=== PATIENT | male | born 1995 | race Caucasian/White ===

== ENCOUNTER 2018-12-26 20:35 | Emergency (ER) | payer MEDICAID, OTHER ==
[~2018-12-26] VITALS: Ht 180.3 cm; Wt 99.8 kg
[~2018-12-26 20:35] MED LIST: CODACE30 PO; HYDACE5 PO; RXCODACET PO; RXHYDACE PO
[2018-12-27] MEDS ORDERED: IBUP600 PO (00:27)
== END 2018-12-27 00:43 | disposition home or self-care (01) ==
LOC: ER 20:35
DX: S86.912A Strain of unspecified muscle(s) and tendon(s) at lower leg level, left leg, initial encounter (principal); S40.011A Contusion of right shoulder, initial encounter; W18.30XA Fall on same level, unspecified, initial encounter
CPT/HCPCS: 73030; 73562-LT; 99283-25

== ENCOUNTER 2021-06-14 12:38 | Emergency (ER) | payer OTHER ==
[~2021-06-14] VITALS: Ht 180.3 cm; Wt 95.2 kg
[~2021-06-14 12:38] MED LIST changes: +IBUP600 PO
[2021-06-14] MEDS ORDERED: ADULT GLYCERIN1 EACH PR (14:17)
[2021-06-14] MEDS ORDERED: MAGCIT300 PO (14:17)
[2021-06-14] MEDS ORDERED: BISA5EC PO (14:17)
[2021-12-26] MEDS ORDERED: Cleocin HCl300 MG PO (03:52)
== END 2021-06-14 14:26 | disposition home or self-care (01) ==
LOC: ER 12:38
DX: K59.00 Constipation, unspecified (principal); F11.10 Opioid abuse, uncomplicated
CPT/HCPCS: 74019; 99283-25

== ENCOUNTER 2022-01-04 23:26 | Inpatient (IN) | payer OTHER ==
[~2022-01-04] VITALS: Ht 180.3 cm; Wt 98.7 kg
[~2022-01-04 23:26] MED LIST changes: +ADULT GLYCERIN1 EACH PR; +BISA5EC PO; +Cleocin HCl300 MG PO; +MAGCIT300 PO
[2022-01-05 00:38] LABS: BASOPHILS ABSOLUTE AUTO 0.04 K/mm3 (0.00-0.23); BASOPHILS PERCENT AUTO 0 % (0-2); EOSINOPHILS ABSOLUTE AUTO 0.08 K/mm3 (0.00-0.68); EOSINOPHILS PERCENT AUTO 1 % (0-6); Hematocrit 43.7 % (37.0-53.0); Hemoglobin 15.3 g/dL (13.5-17.5); IMMATURE GRAN ABSOLUTE AUTO 0.05 K/mm3 (0.00-0.10); IMMATURE GRAN PERCENT AUTO 0 % (0-1); LYMPHOCYTES ABSOLUTE AUTO 2.77 K/mm3 (0.84-5.20); LYMPHOCYTES PERCENT AUTO 20 % (21-46); MONOCYTES ABSOLUTE AUTO 1.36 K/mm3 (0.16-1.47); MONOCYTES PERCENT AUTO 10 % (4-13); Mean Corpuscular HGB 30.4 pg (26.0-34.0); Mean Corpuscular Volume 87 fL (80-100); Mean Platelet Volume 9.8 fL (9.1-12.4); NEUTROPHILS ABSOLUTE AUTO 9.63 K/mm3 (1.96-9.15); NEUTROPHILS PERCENT AUTO 69 % (41-73); Platelet Count 272 K/mm3 (150-400); RDW Coefficient Variation 13.4 % (11.7-14.2); RDW Standard Deviation 42.3 fL (35.1-46.3); Red Blood Cell Count 5.04 M/mm3 (4.30-5.90); White Blood Cell Count 13.93 K/mm3 (4.00-11.30)
[2022-01-05 00:51] LABS: Albumin, Blood 4.1 g/dL (3.4-5.0); Albumin/Globulin Ratio 1.2 (0.8-1.8); Bilirubin, Total 1.2 mg/dL (0.1-1.0); Bun/Creatinine Ratio 16.7 (12.0-20.0); Calcium, Blood 9.1 mg/dL (8.5-10.1); Creatinine, Blood 0.96 mg/dL (0.60-1.20); Globulin, Blood 3.3 g/dL (2.2-4.0); Potassium, Blood 3.6 mmol/L (3.5-5.5); Total Protein, Blood 7.4 g/dL (6.4-8.2)
[2022-01-05 02:32] LABS: Influenza A, PCR NEGATIVE (NEGATIVE); Influenza B, PCR NEGATIVE (NEGATIVE); Resp Syncytial Virus, PCR NEGATIVE (NEGATIVE); SARS-Cov-2 (COVID-19) PCR, MMC NEGATIVE (NEGATIVE)
--- NOTE | 2022-01-05 19:15 | NUR ---
SHIFT SUMMARY PLEASANT 26-YEAR-OLD TRANSFERRED FROM ER FOR CONTINUED CARE. A&O X4, L PERIPHERAL IV. INDEPENDENT, CONTINENT, REGULAR DIET. CONTINUE TO MONITOR.
--- NOTE | 2022-01-06 06:48 | NUR ---
SHIFT SUMMARY PT RCVD IV ABX ORDERED. C/O PERIODIC SHARP PAIN IN HIS FACE, WAS GIVEN PRN TYLENOL AND OFFERED PRN IV TORADOL IF PAIN PERSISTED BUT HE DECLINED TORADOL. WOUND CULTURE WAS COLLECTED FOR YELLOW D/C FROM HIS FACIAL WOUND AND SENT TO THE LAB. PT'S LA IV WAS GIVING HIM SHARP PAIN ON INFUSION, D/C THAT IV AND STARTED A NEW IV IN L AC. VSS, NO ACUTE EVENTS, PT PLEASANT AND COOPERATIVE WITH CARE.
--- NOTE | 2022-01-06 18:41 | NUR ---
SHIFT SUMMARY 26-YEAR-OLD CONTINUES ANTIBIOTIC TREATMENT. PTN HAD NO COMPLAINTS THIS SHIFT. A&O X4. FAMILY MEMBER IN FOR VISIT. CONTINUE TO MONITOR.
--- NOTE | 2022-01-07 04:09 | NUR ---
SHIFT SUMMARY PATIENT IS ALERT AND ORIENTED. PATIENT HAS BEEN PLEASENT AND COOPERATIVE WITH CARE. PATIENT IS CONTINUING ABX TREATMENTS FOR FACIAL CELLULITIS. PATIENT HAS HAD NO ACUTE EVENTS THIS SHIFT. VITAL SIGNS REVIEWED. PATIENT HAS HAD NO COMPLAINTS OF PAIN, NAUSEA, SOB OR VOMITTING THIS SHIFT. PATIENT HAS BEEN IND IN ROOM THIS SHIFT. BED IN LOCKED AND LOWEST POSITION. CALL LIGHT IN PLACE. WILL MONITOR UNTIL SHIFT CHANGE.
--- NOTE | 2022-01-07 07:25 | NUR ---
ASSUMED CARE: PT SITTING UPRIGHT ON SIDE OF BED. SLIGHT FACIAL SWELLING AND LARGE SCAB NOTED TO RIGHT SIDE. DENIES OTHER NEEDS OR CONCERNS.
[2022-01-07] MEDS ORDERED: LACT PO (12:02)
[2022-01-07] MEDS ORDERED: Acetaminophen650 M1 PO (12:02)
[2022-01-07] MEDS ORDERED: AMOCLA875 PO (12:03)
--- NOTE | 2022-01-07 14:06 | NUR ---
PT'S IV REMOVED WNL. PT GIVEN INSTRUCTIONS ABOUT MEDICATIONS TO TAKE AND FOLLOW UP APPOINTMENTS TO ARRANGE. DENIED FURTHER QUESTIONS OR CONCERNS. AMBULATORY UPON DISCHARGE.
== END 2022-01-07 13:46 | disposition home or self-care (01) | DRG 872 ==
LOC: ER 23:26 → MEDS 01-05 06:13
PROVIDERS: Student in an Organized Health Care Education/Training Program; ADMIT Family Medicine
DX: A41.9 Sepsis, unspecified organism (principal); E87.1 Hypo-osmolality and hyponatremia; L03.211 Cellulitis of face; F15.10 Other stimulant abuse, uncomplicated; Z98.890 Other specified postprocedural states; Z20.822 Contact with and (suspected) exposure to COVID-19; D72.828 Other elevated white blood cell count; F11.10 Opioid abuse, uncomplicated; F17.200 Nicotine dependence, unspecified, uncomplicated
CPT/HCPCS: 0241U; 36415; 70487; 80053; 83605; 85025; 87040; 87070; 87075; 87077; 87147; 87186; 87205; 96361; 96365-59; 96375; 99284-25; A9270; J0295; J1885; J7030; J7050; Q9967

== ENCOUNTER 2022-03-20 23:35 | Emergency (ER) | payer OTHER ==
[~2022-03-20] VITALS: Ht 180.3 cm; Wt 81.7 kg
[~2022-03-20 23:35] MED LIST changes: +AMOCLA875 PO; +Acetaminophen650 M1 PO; +LACT PO
== END 2022-03-21 06:53 | disposition home or self-care (01) ==
LOC: ER 23:35
DX: F15.19 Other stimulant abuse with unspecified stimulant-induced disorder (principal); R44.0 Auditory hallucinations; R44.1 Visual hallucinations; F17.200 Nicotine dependence, unspecified, uncomplicated; Z79.899 Other long term (current) drug therapy
CPT/HCPCS: 99285

== ENCOUNTER 2022-03-24 13:24 | Inpatient (IN) | payer OTHER ==
[~2022-03-24] VITALS: Ht 180.3 cm; Wt 93.0 kg
[2022-03-24 14:54] LABS: BASOPHILS ABSOLUTE AUTO 0.08 K/mm3 (0.00-0.23); BASOPHILS PERCENT AUTO 1 % (0-2); EOSINOPHILS PERCENT AUTO 1 % (0-6); Hematocrit 38.6 % (37.0-53.0); Hemoglobin 13.3 g/dL (13.5-17.5); IMMATURE GRAN ABSOLUTE AUTO 0.07 K/mm3 (0.00-0.10); IMMATURE GRAN PERCENT AUTO 0 % (0-1); LYMPHOCYTES ABSOLUTE AUTO 1.54 K/mm3 (0.84-5.20); LYMPHOCYTES PERCENT AUTO 10 % (21-46); MONOCYTES PERCENT AUTO 8 % (4-13); Mean Corpuscular HGB 30.2 pg (26.0-34.0); Mean Corpuscular HGB Conc 34.5 g/dL (31.5-36.5); Mean Corpuscular Volume 88 fL (80-100); Mean Platelet Volume 9.3 fL (9.1-12.4); NEUTROPHILS ABSOLUTE AUTO 12.75 K/mm3 (1.96-9.15); NEUTROPHILS PERCENT AUTO 81 % (41-73); Platelet Count 242 K/mm3 (150-400); RDW Coefficient Variation 13.1 % (11.7-14.2); RDW Standard Deviation 42.4 fL (35.1-46.3); Red Blood Cell Count 4.41 M/mm3 (4.30-5.90); White Blood Cell Count 15.74 K/mm3 (4.00-11.30)
[2022-03-24 15:28] LABS: Albumin, Blood 3.7 g/dL (3.4-5.0); Albumin/Globulin Ratio 1.2 (0.8-1.8); Bilirubin, Total 1.2 mg/dL (0.1-1.0); Bun/Creatinine Ratio 17.6 (12.0-20.0); Calcium, Blood 8.7 mg/dL (8.5-10.1); Creatinine, Blood 1.02 mg/dL (0.60-1.20); Globulin, Blood 3.1 g/dL (2.2-4.0); Total Protein, Blood 6.8 g/dL (6.4-8.2)
[2022-03-24 16:02] LABS: Influenza A, PCR NEGATIVE (NEGATIVE); Influenza B, PCR NEGATIVE (NEGATIVE); Resp Syncytial Virus, PCR NEGATIVE (NEGATIVE); SARS-Cov-2 (COVID-19) PCR, MMC NEGATIVE (NEGATIVE)
[2022-03-24] MEDS ORDERED: AMOCLA875 PO (17:11)
[2022-03-25 05:15] LABS: BASOPHILS ABSOLUTE AUTO 0.05 K/mm3 (0.00-0.23); BASOPHILS PERCENT AUTO 1 % (0-2); EOSINOPHILS ABSOLUTE AUTO 0.05 K/mm3 (0.00-0.68); EOSINOPHILS PERCENT AUTO 1 % (0-6); Hematocrit 36.6 % (37.0-53.0); Hemoglobin 12.6 g/dL (13.5-17.5); IMMATURE GRAN ABSOLUTE AUTO 0.04 K/mm3 (0.00-0.10); IMMATURE GRAN PERCENT AUTO 0 % (0-1); LYMPHOCYTES ABSOLUTE AUTO 1.06 K/mm3 (0.84-5.20); LYMPHOCYTES PERCENT AUTO 11 % (21-46); MONOCYTES ABSOLUTE AUTO 0.67 K/mm3 (0.16-1.47); MONOCYTES PERCENT AUTO 7 % (4-13); Mean Corpuscular HGB Conc 34.4 g/dL (31.5-36.5); Mean Corpuscular Volume 87 fL (80-100); Mean Platelet Volume 9.3 fL (9.1-12.4); NEUTROPHILS ABSOLUTE AUTO 7.74 K/mm3 (1.96-9.15); NEUTROPHILS PERCENT AUTO 81 % (41-73); Platelet Count 189 K/mm3 (150-400); RDW Coefficient Variation 13.2 % (11.7-14.2); RDW Standard Deviation 41.9 fL (35.1-46.3); White Blood Cell Count 9.61 K/mm3 (4.00-11.30)
--- NOTE | 2022-03-25 05:15 | NUR ---
SHIFT SUMMARY NOC PT A/O 2-3. ADMIT FROM ED. 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 PT HAS CELLULITS IN FACE IN LOWER JAW/CHIN AREA MOST PROMINENTLY ON L SIDE. PT HAS ABX UNYSYN FOR TX AND NS INFUSING @ 100 MLS. PT SKIN DIRTY T/O. UNABLE TO ASSESS LOWER EXTREMITIES BECAUSE PT REFUSED TO TAKE OFF PANTS. PT CAME FROM [facility]. THERE IS NOTE IN CHART FOR PT TO CONTACT [facility]/STATION HELPER UPON RELEASE OR WHILE HOSPITALIZED TO AVOID WARRANT FOR ARREST BEING ISSUED. PT WAS FEBRILE AT 102.3F AND GIVEN TYLENOL AND DOWNGRADED TO 98.2F. PT IS RESTING WITH BED ALARM ON, BED RAILS UP, BED IN LOWEST POSITION, AND CALL LIGHTE WITHIN REACH.
[2022-03-25 06:03] LABS: Bun/Creatinine Ratio 12.9 (12.0-20.0); Calcium, Blood 8.5 mg/dL (8.5-10.1); Creatinine, Blood 0.85 mg/dL (0.60-1.20); Potassium, Blood 3.4 mmol/L (3.5-5.5)
--- NOTE | 2022-03-25 18:41 | NUR ---
SHIFT SUMMARY: PATIENT ALERT AND ORIENTED X2-3. PT HAS BEEN SLEEPING THE MAJORITY OF THE SHIFT. PT HAS HAD SOME PAIN IN FACE FROM HIS CELLULITIS BUT COULD NOT EXPRESS THE LEVEL OF PAIN. PT HAD A FEVER OF 101.8 GAVE TYLENOL WHICH BROUGHT THE TEMP DOWN TO 100.8. BLOOD CULTURE SHOWS GRAM COCCI IN CHAINS. UNASYN CONTINUED PER DR. STEPHENSON. PT HAS SPELLS OF SHIVERING THEN INTENSE HEAT. MOST LIKELY WITHDRAWING FROM METH/FENTANYL. CALL LIGHT IN REACH. BED IN LOWEST POSITION.
--- NOTE | 2022-03-26 04:53 | NUR ---
SHIFT SUMMARY; NO ACUTE CHANGES T/O THE NIGHT. THE PT SLEPT THE ENTIRE NIGHT. THE PT GROINS IN PAIN WITH MOVEMENT, BUT WHEN ASKED WHAT HURTS OR WHAT HIS PAIN LEVEL IS THE PT DOES NOT RESPOND. WHEN ASKED IF HE WOULD LIKE PAIN MEDICATION FOR HIS CELLULITIS, PT STATES HE IS "ALRIGHT". PT IS VERY DIAPHORETIC TONIGHT BUT REMAINS WITHOUT FEVER FOR THE DURATION OF THIS SHIFT. THE PT WAS COOPERATIVE OF CARE. THE PT USED THE BEDSIDE URINAL T/O THE NIGHT. CURRENTLY THE PT IS SLEEPING IN BED WITH THE BED IN THE LOWEST POSITION AND THE CALL LIGHT AT BEDSIDE.
--- NOTE | 2022-03-26 19:13 | NUR ---
SHIFT SUMMARY- PT IS A/O, PLESANT AND COOPERATIVE. HE IS EATING AND DRINKING WELL. HE TOOK A SHOWER THIS SHIFT. HE IS RECIEVING IV ABX, POSSIBLE DISCHARGE TOMORROW. HIS BED IS IN THE LOW POSITION AND CALL LIGHT IS WITIN REACH.
--- NOTE | 2022-03-27 04:47 | NUR ---
SHIFT SUMMARY; NO ACUTE CHANGES OVERNIGHT. PT SLEPT IN BED T/O THE NIGHT. PT CONTINUES TO DENY ANY PAIN OR SOB AT THIS TIME. CURRENTLY THE PT IS SLEEPING IN BED WITH THE BED IN THE LOWEST POSITION AND THE CALL LIGHT AT BEDSIDE.
[2022-03-27 05:31] LABS: BASOPHILS ABSOLUTE AUTO 0.03 K/mm3 (0.00-0.23); BASOPHILS PERCENT AUTO 1 % (0-2); EOSINOPHILS ABSOLUTE AUTO 0.39 K/mm3 (0.00-0.68); EOSINOPHILS PERCENT AUTO 8 % (0-6); Hematocrit 36.8 % (37.0-53.0); Hemoglobin 12.4 g/dL (13.5-17.5); IMMATURE GRAN ABSOLUTE AUTO 0.01 K/mm3 (0.00-0.10); IMMATURE GRAN PERCENT AUTO 0 % (0-1); LYMPHOCYTES ABSOLUTE AUTO 1.72 K/mm3 (0.84-5.20); LYMPHOCYTES PERCENT AUTO 34 % (21-46); MONOCYTES ABSOLUTE AUTO 0.49 K/mm3 (0.16-1.47); MONOCYTES PERCENT AUTO 10 % (4-13); Mean Corpuscular HGB 29.3 pg (26.0-34.0); Mean Corpuscular HGB Conc 33.7 g/dL (31.5-36.5); Mean Corpuscular Volume 87 fL (80-100); Mean Platelet Volume 9.8 fL (9.1-12.4); NEUTROPHILS ABSOLUTE AUTO 2.46 K/mm3 (1.96-9.15); NEUTROPHILS PERCENT AUTO 48 % (41-73); Platelet Count 226 K/mm3 (150-400); RDW Coefficient Variation 13.1 % (11.7-14.2); Red Blood Cell Count 4.23 M/mm3 (4.30-5.90)
[2022-03-27 06:00] LABS: Bun/Creatinine Ratio 11.8 (12.0-20.0); Calcium, Blood 8.4 mg/dL (8.5-10.1); Creatinine, Blood 0.85 mg/dL (0.60-1.20); Potassium, Blood 3.6 mmol/L (3.5-5.5)
[2022-03-27] MEDS ORDERED: VISBIOME 112.51 EACH PO (10:43)
[2022-03-27] MEDS ORDERED: IBUP600 PO (10:44)
--- NOTE | 2022-03-27 14:34 | NUR ---
DISCHARGE NOTE: PT A&0 X4, PLEASANT AND COOPERATIVE. PT EDUCATED ON DISCHARGE MEDICATIONS, FOLLOW UP WITH PCP AND REFERRAL TO THE DENTIST. PT IV REMOVED WITH CATHETER INTACT AND W/O DIFFICULTY. PT RECVIED LAST ABX FOR THE DAY, PER DR. SWEENEY ORDERS. PT PACKED AND DRESSED SELF AND RENE SNYDER ESCORTED VIA WC TO THE LOBBY.
== END 2022-03-27 14:31 | disposition home or self-care (01) | DRG 602 ==
LOC: ER 13:24 → MEDS 21:22
PROVIDERS: Emergency Medicine; Internal Medicine; ADMIT Internal Medicine
DX: L03.211 Cellulitis of face (principal); G92.8 Other toxic encephalopathy; Z16.11 Resistance to penicillins; K04.7 Periapical abscess without sinus; K02.9 Dental caries, unspecified; F17.210 Nicotine dependence, cigarettes, uncomplicated; T43.651A Poisoning by methamphetamines accidental (unintentional), initial encounter; F15.129 Other stimulant abuse with intoxication, unspecified; F11.10 Opioid abuse, uncomplicated; J32.0 Chronic maxillary sinusitis; R59.1 Generalized enlarged lymph nodes; B95.4 Other streptococcus as the cause of diseases classified elsewhere; Z20.822 Contact with and (suspected) exposure to COVID-19; Z98.890 Other specified postprocedural states; Z79.899 Other long term (current) drug therapy
CPT/HCPCS: 0241U; 36415; 70491; 80048; 80053; 83605; 85025; 87040; 96365-59; 96372-59; 96375; 99285-25; A9270; J0295; J1650; J1885; J2060; J2543; J7030; J7050; J7120; Q9967

== ENCOUNTER 2022-09-10 04:00 | Emergency (ER) | payer OTHER ==
[~2022-09-10] VITALS: Ht 182.9 cm; Wt 90.7 kg
[~2022-09-10 04:00] MED LIST changes: +VISBIOME 112.51 EACH PO
[2022-09-10 04:11] VITALS: BP 134/68
[2022-09-10] MEDS ORDERED: SULTRIDS PO (05:00)
== END 2022-09-10 05:14 | disposition home or self-care (01) ==
LOC: ER 04:00
DX: L03.211 Cellulitis of face (principal); L73.9 Follicular disorder, unspecified; F17.200 Nicotine dependence, unspecified, uncomplicated
CPT/HCPCS: 99283

== ENCOUNTER → 2022-10-05 | Outpatient (CLI) | payer OTHER ==
[~2022-10-05] MED LIST changes: +SULTRIDS PO
[2022-10-07 06:11] LABS: HIV AB/P24 AG SCREEN Non Reactive (Non Reactive)
[2022-10-07 07:11] LABS: HBSAG SCREEN Negative (Negative); HCV ANTIBODY Non Reactive (Non Reactive)
[2022-10-08 00:07] LABS: CHLAMYDIA TRACHOMATIS, NAA Negative (Negative)
== END | disposition home or self-care (01) ==
LOC: LAB 18:05 → LAB SHORT 18:05
PROVIDERS: Registered Nurse Community Health
DX: Z11.3 Encounter for screening for infections with a predominantly sexual mode of transmission (principal); R30.0 Dysuria
CPT/HCPCS: 86592; 86803; 87086; 87340; 87389; 87491; 87591

== ENCOUNTER 2024-01-15 14:11 | Emergency (ER) | payer OTHER ==
[~2024-01-15] VITALS: Ht 180.3 cm; Wt 102.1 kg
[2024-01-15 14:28] VITALS: BP 129/52
[2024-01-15 15:06] LABS: Source, Urine Clean Catch
[2024-01-15 15:14] LABS: Appearance, Urine Clear (Clear); Bilirubin, Urine Neg (Neg); Blood, Urine Neg (Neg); Color, Urine Yellow (P-Yellow); Glucose Qualitative, Urine Neg (Neg); Ketones, Urine Neg (Neg); Leukocyte Esterase, Urine 1+ (Neg); Nitrite, Urine Neg (Neg); Protein, Urine 2+ (Neg); Urobilinogen, Urine NORM (Normal)
[2024-01-15 15:34] LABS: U Amphetamine Screen DETECTED; U Barbituate Screen Not Detected; U Benzodiazapine Screen Not Detected; U Buprenorphine Screen Not Detected; U Cannabinoids Screen DETECTED; U Cocaine Screen Not Detected; U Methadone Screen Not Detected; U Methamphetamine Screen DETECTED; U Opiates Screen Not Detected; U Oxycodone Screen Not Detected; U Phencyclidine Screen Not Detected
[2024-01-15 15:40] LABS: Bacteria Many /hpf; Mucus Mod (0-Heavy); Squamous Epithelial Cells Rare /hpf (Few)
[2024-01-15 15:55] LABS: BASOPHILS ABSOLUTE AUTO 0.05 K/mm3 (0.00-0.23); BASOPHILS PERCENT AUTO 0 % (0-2); EOSINOPHILS ABSOLUTE AUTO 0.01 K/mm3 (0.00-0.68); EOSINOPHILS PERCENT AUTO 0 % (0-6); Hematocrit 40.9 % (37.0-53.0); Hemoglobin 13.8 g/dL (13.5-17.5); IMMATURE GRAN ABSOLUTE AUTO 0.14 K/mm3 (0.00-0.10); IMMATURE GRAN PERCENT AUTO 1 % (0-1); LYMPHOCYTES ABSOLUTE AUTO 0.77 K/mm3 (0.84-5.20); LYMPHOCYTES PERCENT AUTO 5 % (21-46); MONOCYTES ABSOLUTE AUTO 0.42 K/mm3 (0.16-1.47); MONOCYTES PERCENT AUTO 3 % (4-13); Mean Corpuscular HGB 28.4 pg (26.0-34.0); Mean Corpuscular HGB Conc 33.7 g/dL (31.5-36.5); Mean Corpuscular Volume 84 fL (80-100); Mean Platelet Volume 9.4 fL (9.1-12.4); NEUTROPHILS ABSOLUTE AUTO 14.73 K/mm3 (1.96-9.15); NEUTROPHILS PERCENT AUTO 91 % (41-73); Platelet Count 264 K/mm3 (150-400); RDW Coefficient Variation 13.2 % (11.7-14.2); RDW Standard Deviation 40.6 fL (35.1-46.3); Red Blood Cell Count 4.86 M/mm3 (4.30-5.90); White Blood Cell Count 16.12 K/mm3 (4.00-11.30)
[2024-01-15 16:09] LABS: Albumin, Blood 3.4 g/dL (3.4-5.0); Albumin/Globulin Ratio 0.9 (0.8-1.8); Bilirubin, Total 0.7 mg/dL (0.1-1.0); Bun/Creatinine Ratio 16.5 (12.0-20.0); Calcium, Blood 8.7 mg/dL (8.5-10.1); Creatinine, Blood 0.97 mg/dL (0.60-1.20); Globulin, Blood 3.9 g/dL (2.2-4.0); Potassium, Blood 3.5 mmol/L (3.5-5.5); Total Protein, Blood 7.3 g/dL (6.4-8.2)
[2024-01-15] MEDS ORDERED: Bactrim Ds Tab1 EACH PO (20:08)
== END 2024-01-15 16:22 | disposition home or self-care (01) ==
LOC: ER 14:11
PROVIDERS: Emergency Medicine
DX: J06.9 Acute upper respiratory infection, unspecified (principal); F17.290 Nicotine dependence, other tobacco product, uncomplicated; Z11.52 Encounter for screening for COVID-19; L03.116 Cellulitis of left lower limb; L03.115 Cellulitis of right lower limb; M79.89 Other specified soft tissue disorders
CPT/HCPCS: 80053; 81001; 85025; 87086; 93005; 93010; 96372; 99283-25; A9270; J0696

== ENCOUNTER 2024-01-15 19:18 | Emergency (ER) | payer OTHER ==
[~2024-01-15] VITALS: Ht 180.3 cm; Wt 90.7 kg
[2024-01-15 19:42] VITALS: BP 126/77
[2024-01-15] MEDS ORDERED: Acetaminophen 500 MG Tab PO ONE (20:05)
[2024-01-15] MEDS ORDERED: CefTRIAXone 1000 MG Vial IM ONE (20:05)
[2024-01-15] MEDS ORDERED: Bactrim Ds Tab1 EACH PO (20:08)
== END 2024-01-15 20:40 | disposition home or self-care (01) ==
LOC: ER 19:18
DX: L03.116 Cellulitis of left lower limb (principal); L03.115 Cellulitis of right lower limb; F17.290 Nicotine dependence, other tobacco product, uncomplicated
CPT/HCPCS: 96372; 99283-25; A9270; J0696

== ENCOUNTER 2024-01-17 17:28 | Emergency (ER) | payer OTHER ==
[~2024-01-17] VITALS: Ht 180.3 cm; Wt 102.1 kg
[~2024-01-17 17:28] MED LIST changes: +Bactrim Ds Tab1 EACH PO
[2024-01-17 17:41] VITALS: BP 135/78
[2024-01-17 18:04] LABS: BASOPHILS ABSOLUTE AUTO 0.03 K/mm3 (0.00-0.23); BASOPHILS PERCENT AUTO 0 % (0-2); EOSINOPHILS ABSOLUTE AUTO 0.13 K/mm3 (0.00-0.68); EOSINOPHILS PERCENT AUTO 2 % (0-6); Hematocrit 40.8 % (37.0-53.0); Hemoglobin 13.8 g/dL (13.5-17.5); IMMATURE GRAN ABSOLUTE AUTO 0.04 K/mm3 (0.00-0.10); IMMATURE GRAN PERCENT AUTO 0 % (0-1); LYMPHOCYTES ABSOLUTE AUTO 1.63 K/mm3 (0.84-5.20); LYMPHOCYTES PERCENT AUTO 18 % (21-46); MONOCYTES PERCENT AUTO 9 % (4-13); Mean Corpuscular HGB Conc 33.8 g/dL (31.5-36.5); Mean Corpuscular Volume 83 fL (80-100); Mean Platelet Volume 9.4 fL (9.1-12.4); NEUTROPHILS ABSOLUTE AUTO 6.26 K/mm3 (1.96-9.15); NEUTROPHILS PERCENT AUTO 71 % (41-73); Platelet Count 233 K/mm3 (150-400); RDW Coefficient Variation 13.2 % (11.7-14.2); RDW Standard Deviation 39.7 fL (35.1-46.3); Red Blood Cell Count 4.93 M/mm3 (4.30-5.90); White Blood Cell Count 8.89 K/mm3 (4.00-11.30)
[2024-01-17 18:27] LABS: Albumin/Globulin Ratio 0.7 (0.8-1.8); Bilirubin, Total 0.5 mg/dL (0.1-1.0); Bun/Creatinine Ratio 13.8 (12.0-20.0); Calcium, Blood 8.4 mg/dL (8.5-10.1); Creatinine, Blood 0.94 mg/dL (0.60-1.20); Globulin, Blood 4.5 g/dL (2.2-4.0); Potassium, Blood 3.1 mmol/L (3.5-5.5); Total Protein, Blood 7.5 g/dL (6.4-8.2)
== END 2024-01-17 19:04 | disposition home or self-care (01) ==
LOC: ER 17:28
PROVIDERS: Physician Assistant
DX: L03.115 Cellulitis of right lower limb (principal); F17.290 Nicotine dependence, other tobacco product, uncomplicated; Z79.2 Long term (current) use of antibiotics
CPT/HCPCS: 80053; 85025; 99283

== ENCOUNTER 2024-03-03 11:56 | Emergency (ER) | payer OTHER ==
[~2024-03-03] VITALS: Ht 180.3 cm; Wt 99.8 kg
[2024-03-03 12:25] VITALS: BP 136/85
[2024-03-03] MEDS ORDERED: CEPH500 PO (12:29)
[2024-03-03] MEDS ORDERED: Mupirocin22 GM TOP (12:29)
== END 2024-03-03 12:34 | disposition home or self-care (01) ==
LOC: ER 11:56
DX: L01.00 Impetigo, unspecified (principal); F17.200 Nicotine dependence, unspecified, uncomplicated
CPT/HCPCS: 99283

== ENCOUNTER → 2024-03-20 | Outpatient (CLI) | payer OTHER ==
[~2024-03-20] MED LIST changes: +CEPH500 PO; +Mupirocin22 GM TOP
[2024-03-20 17:11] LABS: BASOPHILS ABSOLUTE AUTO 0.04 K/mm3 (0.00-0.23); BASOPHILS PERCENT AUTO 1 % (0-2); EOSINOPHILS ABSOLUTE AUTO 0.27 K/mm3 (0.00-0.68); EOSINOPHILS PERCENT AUTO 4 % (0-6); Hematocrit 38.5 % (37.0-53.0); Hemoglobin 12.7 g/dL (13.5-17.5); IMMATURE GRAN ABSOLUTE AUTO 0.01 K/mm3 (0.00-0.10); IMMATURE GRAN PERCENT AUTO 0 % (0-1); LYMPHOCYTES ABSOLUTE AUTO 1.99 K/mm3 (0.84-5.20); LYMPHOCYTES PERCENT AUTO 30 % (21-46); MONOCYTES ABSOLUTE AUTO 0.62 K/mm3 (0.16-1.47); MONOCYTES PERCENT AUTO 9 % (4-13); Mean Corpuscular HGB 27.4 pg (26.0-34.0); Mean Corpuscular Volume 83 fL (80-100); Mean Platelet Volume 8.8 fL (9.1-12.4); NEUTROPHILS ABSOLUTE AUTO 3.77 K/mm3 (1.96-9.15); NEUTROPHILS PERCENT AUTO 56 % (41-73); Platelet Count 327 K/mm3 (150-400); RDW Coefficient Variation 13.4 % (11.7-14.2); Red Blood Cell Count 4.63 M/mm3 (4.30-5.90)
[2024-03-20 17:22] LABS: Albumin, Blood 3.7 g/dL (3.4-5.0); Albumin/Globulin Ratio 0.9 (0.8-1.8); Bilirubin, Total 0.6 mg/dL (0.1-1.0); Bun/Creatinine Ratio 11.3 (12.0-20.0); Calcium, Blood 8.8 mg/dL (8.5-10.1); Creatinine, Blood 1.24 mg/dL (0.60-1.20); Globulin, Blood 4.2 g/dL (2.2-4.0); Phosphorus, Blood 4.4 mg/dL (2.5-4.9); Potassium, Blood 3.7 mmol/L (3.5-5.5); Total Protein, Blood 7.9 g/dL (6.4-8.2)
== END ==
LOC: LAB 17:06 → LAB SHORT 17:06
PROVIDERS: Family Medicine
DX: R22.43 Localized swelling, mass and lump, lower limb, bilateral (principal)
CPT/HCPCS: 80053; 83880; 84100; 85025; 86140

== ENCOUNTER 2024-06-20 14:40 | Emergency (ER) | payer OTHER ==
[~2024-06-20] VITALS: Ht 180.3 cm; Wt 99.8 kg
[2024-06-20 15:55] LABS: BASOPHILS ABSOLUTE AUTO 0.08 K/mm3 (0.00-0.23); BASOPHILS PERCENT AUTO 1 % (0-2); EOSINOPHILS ABSOLUTE AUTO 0.27 K/mm3 (0.00-0.68); EOSINOPHILS PERCENT AUTO 3 % (0-6); Hematocrit 43.3 % (37.0-53.0); Hemoglobin 14.4 g/dL (13.5-17.5); IMMATURE GRAN ABSOLUTE AUTO 0.03 K/mm3 (0.00-0.10); IMMATURE GRAN PERCENT AUTO 0 % (0-1); LYMPHOCYTES ABSOLUTE AUTO 2.46 K/mm3 (0.84-5.20); LYMPHOCYTES PERCENT AUTO 23 % (21-46); MONOCYTES ABSOLUTE AUTO 1.07 K/mm3 (0.16-1.47); MONOCYTES PERCENT AUTO 10 % (4-13); Mean Corpuscular HGB 27.9 pg (26.0-34.0); Mean Corpuscular HGB Conc 33.3 g/dL (31.5-36.5); Mean Corpuscular Volume 84 fL (80-100); NEUTROPHILS ABSOLUTE AUTO 6.92 K/mm3 (1.96-9.15); NEUTROPHILS PERCENT AUTO 64 % (41-73); Platelet Count 292 K/mm3 (150-400); RDW Coefficient Variation 13.9 % (11.7-14.2); RDW Standard Deviation 42.5 fL (35.1-46.3); Red Blood Cell Count 5.17 M/mm3 (4.30-5.90); White Blood Cell Count 10.83 K/mm3 (4.00-11.30)
[2024-06-20 16:43] LABS: Albumin, Blood 3.8 g/dL (3.4-5.0); Albumin/Globulin Ratio 0.9 (0.8-1.8); Bilirubin, Total 0.7 mg/dL (0.1-1.0); Bun/Creatinine Ratio 15.3 (12.0-20.0); Creatinine, Blood 0.92 mg/dL (0.60-1.20); Globulin, Blood 4.1 g/dL (2.2-4.0); Potassium, Blood 4.1 mmol/L (3.5-5.5); Total Protein, Blood 7.9 g/dL (6.4-8.2)
[2024-06-20 18:34] VITALS: BP 136/77
[2024-06-20] MEDS ORDERED: Cephalexin Monohydrate 500 MG Cap PO ONE (19:10)
[2024-06-20] MEDS ORDERED: Trimethoprim/Sulfamethoxazole DS Tab PO ONE (19:10)
[2024-06-20] MEDS ORDERED: Ketorolac Tromethamine 15mg Vial IV ONE (19:10)
[2024-06-20] MEDS ORDERED: BACTRIM DS TAB1 EAC1 PO (19:15)
[2024-06-20] MEDS ORDERED: CEPH500 PO (19:15)
== END 2024-06-20 19:26 | disposition home or self-care (01) ==
LOC: ER 14:40
PROVIDERS: Student in an Organized Health Care Education/Training Program
DX: L03.116 Cellulitis of left lower limb (principal); L03.115 Cellulitis of right lower limb; F17.200 Nicotine dependence, unspecified, uncomplicated
CPT/HCPCS: 80053; 85025; 96374; 99283-25; A9270; J1885